=== PATIENT | female | born 1980 | race Caucasian/White ===

== ENCOUNTER 2018-10-29 19:55 | Inpatient (IN) | payer BC ==
[2018-10-29] MEDS ORDERED: IBUPROFEN 600 MG TAB PO (21:00)
[2018-10-29] MEDS ORDERED: METHYLERGONOVINE 0.2 MG INJ IM (21:00)
[2018-10-29] MEDS ORDERED: LIDOCAINE 1% (MPF) 30 ML INJ INJ (21:00)
[2018-10-29] MEDS ORDERED: OXYTOCIN 30 UNITS/LR 500 ML IV ×4 (21:00→22:00)
[2018-10-29] MEDS ORDERED: MISOPROSTOL 200 MCG TAB PR (21:00)
[2018-10-29] MEDS ORDERED: BUTORPHANOL 2 MG INJ IV (21:00)
[2018-10-29] MEDS ORDERED: CARBOPROST 250 MCG INJ IM (21:00)
[2018-10-29] MEDS: LACTATED RINGER'S 1,000 ML IV (21:05)
[2018-10-29 21:17] LABS: ADD MAN DIFF? NO
[2018-10-29 21:19] LABS: WHITE BLOOD COUNT 7.9 10^3/ul (4.8-10.8)
[2018-10-29 21:19] LABS: BASOPHILS % 0.5 % (0.0-2.0); EOSINOPHILS # 0.1 10^3/ul (0.0-0.5); EOSINOPHILS % 0.9 % (0.0-7.0); HEMATOCRIT 30.9 % (37.0-47.0); HEMOGLOBIN 9.6 g/dl (12.0-16.0); LYMPHOCYTES # 1.4 10^3/ul (0.8-2.9); LYMPHOCYTES % 18.1 % (15.0-51.0); MEAN CORPUSCULAR HEMOGLOBIN 25.7 pg (29.0-33.0); MEAN CORPUSCULAR HGB CONC 31.1 g/dl (32.0-37.0); MEAN CORPUSCULAR VOLUME 82.6 fl (82.0-101.0); MEAN PLATELET VOLUME 9.9 fl (7.4-10.4); MONOCYTE # 0.6 10^3/ul (0.3-0.9); MONOCYTES % 7.4 % (0.0-11.0); NEUTROPHIL # 5.7 10^3/ul (1.6-7.5); NEUTROPHILS % 72.3 % (39.0-77.0); NUCLEATED RED BLOOD CELLS% 0.3 /100WBC (0.0-0.0); PLATELET COUNT 302 10^3/UL (140-415); RED BLOOD COUNT 3.74 10^6/ul (4.20-5.40); RED CELL DISTRIBUTION WIDTH 15.7 % (11.5-14.5)
[2018-10-29 21:38] LABS: INR 0.92; PROTIME 12.5 Sec (11.9-14.9)
[2018-10-29 21:39] LABS: PARTIAL THROMBOPLASTIN TIME 23.6 Sec (23.0-35.0)
[2018-10-29] MEDS ORDERED: MISOPROSTOL 50 MCG CAPSULE VAG (22:00)
[2018-10-29 22:30] LABS: HEPATITIS B SURFACE ANTIGEN NEGATIVE (NEGATIVE)
[2018-10-30] MEDS: MISOPROSTOL 50 MCG CAPSULE PO (01:06)
[2018-10-30] MEDS: LACTATED RINGER'S 1,000 ML IV ×4 (02:25→10:49)
[2018-10-30] MEDS ORDERED: DIPHENHYDRAMINE 50 MG INJ IV (08:30)
[2018-10-30] MEDS ORDERED: ONDANSETRON 4 MG INJ IV ×2 (08:30→13:00)
[2018-10-30] MEDS ORDERED: NALOXONE (0.4 MG/ML) INJ IV (08:30)
[2018-10-30] MEDS ORDERED: FENTAnyl 2MCG/ML-ROPIV 0.2% 100 ML BAG EPI (08:30)
[2018-10-30] MEDS ORDERED: OXYTOCIN 30 UNITS/LR 500 ML IV ×2 (11:00→13:00)
[2018-10-30] MEDS: OXYTOCIN 30 UNITS/LR 500 ML IVPB (13:00)
[2018-10-30] MEDS: OXYTOCIN 30 UNITS/LR 500 ML IV ×4 (13:00→21:00)
[2018-10-30] MEDS ORDERED: CARBOPROST 250 MCG INJ IM (13:00)
[2018-10-30] MEDS ORDERED: ZOLPIDEM 5 MG TAB PO (13:00)
[2018-10-30] MEDS ORDERED: DIPHENHYDRAMINE 25 MG CAP PO (13:00)
[2018-10-30] MEDS ORDERED: NACL 0.9% 3 ML SYG IV (13:00)
[2018-10-30] MEDS ORDERED: MISOPROSTOL 200 MCG TAB PR (13:00)
[2018-10-30] MEDS ORDERED: HYDROCODONE/APAP (5/325) TAB PO (13:00)
[2018-10-30] MEDS: IBUPROFEN 600 MG TAB PO ×3 (18:00→23:24)
[2018-10-30 22:52] LABS: RAPID PLASMA REAGIN NONREACTIVE (NR)
[2018-10-30] MEDS: WITCH HAZEL/GLYCERIN PAD PR (23:23)
[2018-10-30] MEDS: BENZOCAINE 20% 56 ML SPRAY TOP (23:23)
[2018-10-30] MEDS: DIBUCAINE 1% 30 GM OINT TOP (23:23)
[2018-10-30] MEDS: SENNA TAB PO (23:32)
[2018-10-31] MEDS: OXYTOCIN 30 UNITS/LR 500 ML IV ×4 (01:00→13:00)
[2018-10-31] MEDS: IBUPROFEN 600 MG TAB PO ×4 (06:00→23:21)
[2018-10-31 08:04] LABS: ADD MAN DIFF? NO
[2018-10-31 08:07] LABS: WHITE BLOOD COUNT 9.1 10^3/ul (4.8-10.8)
[2018-10-31 08:07] LABS: BASOPHILS % 0.3 % (0.0-2.0); EOSINOPHILS # 0.1 10^3/ul (0.0-0.5); EOSINOPHILS % 0.9 % (0.0-7.0); HEMATOCRIT 27.8 % (37.0-47.0); HEMOGLOBIN 8.7 g/dl (12.0-16.0); LYMPHOCYTES # 1.5 10^3/ul (0.8-2.9); LYMPHOCYTES % 16.9 % (15.0-51.0); MEAN CORPUSCULAR HEMOGLOBIN 26.2 pg (29.0-33.0); MEAN CORPUSCULAR HGB CONC 31.3 g/dl (32.0-37.0); MEAN CORPUSCULAR VOLUME 83.7 fl (82.0-101.0); MEAN PLATELET VOLUME 10.5 fl (7.4-10.4); MONOCYTE # 0.5 10^3/ul (0.3-0.9); MONOCYTES % 5.9 % (0.0-11.0); NEUTROPHIL # 6.8 10^3/ul (1.6-7.5); NEUTROPHILS % 75.3 % (39.0-77.0); PLATELET COUNT 245 10^3/UL (140-415); RED BLOOD COUNT 3.32 10^6/ul (4.20-5.40); RED CELL DISTRIBUTION WIDTH 15.9 % (11.5-14.5)
[2018-10-31] MEDS: SENNA TAB PO ×2 (09:34→20:43)
[2018-11-01] MEDS: IBUPROFEN 600 MG TAB PO (05:16)
[2018-11-01] MEDS: SENNA TAB PO (09:52)
== END 2018-11-01 14:42 | disposition home or self-care (01) | DRG 807 ==
LOC: L-D 19:55 → PP1 10-30 17:50 → L-D 19:56
PROVIDERS: Specialist
PROC: 10E0XZZ Delivery of Products of Conception, External Approach (ICD-10-PCS; principal; 2018-10-30)
PROC: 0HQ9XZZ Repair Perineum Skin, External Approach (ICD-10-PCS; 2018-10-30)
PROC: 10907ZC Drainage of Amniotic Fluid, Therapeutic from Products of Conception, Via Natural or Artificial Opening (ICD-10-PCS; 2018-10-30)
DX: O45.93 Premature separation of placenta, unspecified, third trimester (principal); Z37.0 Single live birth; O70.0 First degree perineal laceration during delivery; Z3A.40 40 weeks gestation of pregnancy
CPT/HCPCS: 62322; 85025; 85610; 85730; 86592; 86850; 86900; 86901; 87340; 88307; 99464